=== PATIENT | female | born 1990 | race Caucasian/White ===

== ENCOUNTER 2022-02-28 05:37 | Inpatient (IN) ==
--- NOTE | 2022-02-22 15:18 | Anesthesiology Consultation ---
Date of Service February 22, 2022 Assessment & Plan (1) Encounter for pre-operative examination: Plan - COVID screening: Per esl instructional assistant on 02/22/2022: Travel screen negative, no known COVID-19 positive contacts or current COVID-19 related symptoms in past 2 weeks. To surgeon's discretion if preop COVID testing needed. Chart Review Chart Review: Acceptable Risk for Surgery and Patient NOT seen in Pre Admission Testing History Surgery Operation Date: 02/28/22 07:30 Proposed Procedures p Section in LD (Delivery of Baby through Abdominal Incision) - Priscila Valencia DO Height/Weight Height: 5 ft 4 in Weight: 75.75 kg Allergies Allergy/AdvReac Type Severity Reaction Status Date / Time gluten Allergy Diarrhea Verified 02/22/22 12:19 Medications Home Medications Medication Instructions Recorded Confirmed Last Taken nutritional supplement-fiber 1 dose PO UD 08/08/21 02/22/22 Unknown [Juice Plus] Past Medical History Medical History Digestive disorder chronic crohns colitis History of chicken pox as child History of Clostridioides difficile infection ~2013. no reoccurances History of COVID-19 01/2021 -> fever, loss of taste and smell, mild cough TMJ click improved per pt Ulcerative colitis Past Family History Family History Grandfather Diabetes, type I Heart disease [place] Cancer Grandmother Cancer Father Chronic hypertension Leaky heart valve ASD (atrial septal defect) Mother Family history of reaction to anesthesia WOKE UP DURING SURGERY Uncle Diabetes, type I Aunt Diabetes, type I Grandfather (Maternal) Family hx of colon cancer Grandmother (Paternal) Breast cancer Denies family history of Ovarian cancer Colorectal cancer Past Surgical History Surgical History H/O colonoscopy 12/2014 and 07/2015 for colitis History of adenoidectomy at age 10 History of section x1 History of surgical removal of pilonidal cyst 02/2013 excison of cyst by at [facility] History of tonsillectomy at age 10 Hx of wisdom tooth extraction 2005 Social History Smoking Status: Never smoker Do You Dip or Chew Tobacco: No Hx Alcohol Use: No alcohol intake frequency: holidays/special occasions only Hx Substance Use: No substance use type: does not use Lab Results Anesthesia Preop Results Results Anesthesia Widget: WBC 9.34 K/ul (4.8-10.8) 01/01/22 Hgb 10.9 g/dl (12.0-16.0) L 01/01/22 Hct 33.2 % (34.1-44.9) L 01/01/22 Plt 292 K/uL (130-400) 01/01/22 Na 135 mmol/L (136-145) L 01/01/22 K 3.8 mmol/L (3.5-5.1) 01/01/22 Cl 105 mmol/L (98-107) 01/01/22 CO2 25 mmol/L (21-32) 01/01/22 BUN 6 mg/dl (6-23) 01/01/22 Creat 0.74 mg/dl (0.6-1.2) 01/01/22 Glucose Level 83 mg/dl (70-99(Fasting)) 01/01/22 PT 9.8 Seconds (9.0-12.0) 01/01/22 PTT 25.7 Seconds (21.0-31.0) 01/01/22 INR 0.9 (0.9-1.1) 01/01/22 Urine Color Yellow 01/01/22 Urine Appearance Clear (Clear) 01/01/22 Urine pH 7.5 (4.5-7.5) 01/01/22 Urine Specific Arm[place]ust 1.003 (1.000-1.030) 01/01/22 Urine Protein Negative (Negative) 01/01/22 Urine Glucose (UA) Negative (Negative) 01/01/22 Urine Ketones Negative (Negative) 01/01/22 Urine Blood Negative (Negative) 01/01/22 Urine Nitrite Negative (Negative) 01/01/22 Urine Bilirubin Negative (Negative) 01/01/22 Urine Urobilinogen Negative (Negative) 01/01/22 Urine Leukocyte Esterase Negative (Negative) 01/01/22 Blood Type O Positive 01/01/22 Antibody Screen NEGATIVE 01/01/22
--- NOTE | 2022-02-27 18:01 | History & Physical Report ---
Date of Service February 27, 2022 Assessment & Plan (1) Previous delivery affecting , antepartum: Plan: Plan for repeat section. Reviewed consent in office with patient. Questions answered. History of Present Illness Chief Complaint: Repeat CS Primary Care Provider: RENEE PCP 31yo with EDC 03/02/22. Scheduled for planned repeat section. and Delivery Plans Previous C/S SCHEDULED FOR 02/28/[address] GORDON refused GBS test NEEDS COVID TEST ON 02/26/2022-ORDERED Patient's father with ASD echo~22-24 weeks *[facility] 11/01 @ 0930am - pt cancelled *Declines echo Fibroid in anterior TOM Formal scan ordered to clarify; measured at [facility] NOB not seen on anatomy us-akh Declines all vaginal exams at NOB No pap, Gc/Ct, cervix check or TVUS per patient. Transfer [place] [facility] [place] 11wk Rubella Non Immune *PPX MMR (if pt accepts) Allergies Allergy/AdvReac Type Severity Reaction Status Date / Time gluten Allergy Diarrhea Verified 02/27/22 10:33 Home Medications Medication Instructions Recorded Confirmed Type nutritional supplement-fiber 1 dose PO UD 08/08/21 02/27/22 History [Juice Plus] Patient History Medical History Digestive disorder chronic crohns colitis History of chicken pox as child History of Clostridioides difficile infection ~2013. no reoccurances History of COVID-19 01/2021 -> fever, loss of taste and smell, mild cough TMJ click improved per pt Ulcerative colitis Surgical History H/O colonoscopy 12/2014 and 07/2015 for colitis History of adenoidectomy at age 10 History of section x1 History of surgical removal of pilonidal cyst 02/2013 excison of cyst by at [facility] History of tonsillectomy at age 10 Hx of wisdom tooth extraction 2005 Family History Grandfather Diabetes, type I Heart disease [place] Cancer Grandmother Cancer Father Chronic hypertension Leaky heart valve ASD (atrial septal defect) Mother Family history of reaction to anesthesia WOKE UP DURING SURGERY Uncle Diabetes, type I Aunt Diabetes, type I Grandfather (Maternal) Family hx of colon cancer Grandmother (Paternal) Breast cancer Denies family history of Ovarian cancer Colorectal cancer Social History (Updated 08/08/21 @ 15:18 by Bere Burks) Smoking Status: Never smoker Second Hand Exposure: No; Hx Alcohol Use: No Hx Substance Use: No Preferred Language: Greek Communication Ability: Effective 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: No Beliefs That Will Affect Care: Cultural Cultural Beliefs: no vaccines/ trying to avoid antibiotics marital status: marital status details: Dani Torres (33) [phone] Current Living Situation: Spouse Current Living Situation Comment: lives with spouse, son, dog current occupational status: unemployed 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 No s/s chorio or abruption. Skin: no rashes, warm and dry Psychiatric: A+Ox3, euthymic affect Coding Level of Care Code None Diagnoses Previous delivery affecting , antepartum O34.219
[2022-02-28] MEDS ORDERED: ceFAZolin 2,000 MG in SYRINGE 0 ML IV SCH (06:00)
[2022-02-28] MEDS ORDERED: CITRIC ACID/SODIUM CITRATE 15 ML UDC PO SCH (06:00)
[2022-02-28] MEDS ORDERED: LACTATED RINGER'S 1,000 ML IV SCH (06:00)
[2022-02-28 06:25] LABS: Basophils # (auto) 0.07 K/uL (0-0.2); Basophils % (auto) 0.6 %; Eosinophils # (auto) 0.09 K/uL (0-0.50); Eosinophils % (auto) 0.7 %; Hematocrit (blood only) 32.3 % (34.1-44.9); Hemoglobin 10.7 g/dl (12.0-16.0); Immature Granulocytes % (auto) 0.8 %; Lymphocytes # (auto) 2.81 K/uL (1.2-3.4); Mean Corpuscular Hemoglobin 28.2 pg (25.0-34.0); Mean Corpuscular Hgb Conc 33.1 g/dL (32.0-36.0); Mean Corpuscular Volume 85.2 fL (80.0-100.0); Mean Platelet Volume 11.2 fL (9.4-12.3); Monocytes # (auto) 0.95 K/uL (0.24-0.82); Monocytes % (auto) 7.8 %; Neutrophils % (auto) 67.1 %; Platelet Count 263 K/uL (130-400); RDW Coefficient of Variation 15.5 % (11.5-14.5); RDW Standard Deviation 47.8 fL (36.4-46.3); Red Blood Count 3.79 M/uL (3.93-5.22); White Blood Count 12.22 K/ul (4.8-10.8)
[2022-02-28] MEDS ORDERED: PHENYLEPHRINE 100MCG/ML 5ML SYR ONE (06:48)
[2022-02-28] MEDS ORDERED: OXYTOCIN 10 UNITS/ML 10ML VIAL ONE (06:48)
[2022-02-28] MEDS ORDERED: ONDANSETRON INJ 2 MG/ML 2 ML VIAL ONE (06:48)
[2022-02-28] MEDS ORDERED: fentaNYL citrate 100 MCG/2 ML VIAL ONE (06:48)
[2022-02-28] MEDS ORDERED: MoRPHine SULFATE PF 1 MG/ML 10 ML AMP/VIAL ONE (06:48)
--- NOTE | 2022-02-28 07:34 | History & Physical Bridge Note ---
Date of Service February 28, 2022 History & Physical Bridge Note I have examined the patient, reviewed the History & Physical and in the interval since the performance of the History & Physical I have noted the following changes of clinical significance: no changes noted
[2022-02-28] MEDS ORDERED: ONDANSETRON INJ 2 MG/ML 2 ML VIAL IV PRN (07:57)
[2022-02-28] MEDS ORDERED: NALOXONE HCL 0.08 MG in SYRINGE 1.8 ML IV PRN (07:57)
[2022-02-28] MEDS ORDERED: NALOXONE HCL 1 MG in SODIUM CHLORIDE 0.9% 1000ML 1,000 ML IV PRN (07:57)
[2022-02-28] MEDS ORDERED: NALOXONE HCL 0.4 MG/1 ML VIAL/CARP IV PRN (07:57)
[2022-02-28] MEDS ORDERED: MoRPHine SULFATE 2 MG/ML CARP IV PRN (07:57)
[2022-02-28] MEDS ORDERED: diphenhydrAMINE 50 MG/ML VIAL IV PRN (07:57)
[2022-02-28] MEDS ORDERED: ePHEDrine sulfate 50 MG/ML AMP IV PRN (07:57)
[2022-02-28] MEDS ORDERED: MoRPHine SULFATE PF 1 MG/ML 10 ML AMP/VIAL INT SPINAL ONE (07:57)
[2022-02-28] MEDS ORDERED: NALBUPHINE HCL INJ 10 MG/ML AMP IV PRN (07:57)
[2022-02-28] MEDS ORDERED: LACTATED RINGER'S 500 ML IV PRN (07:57)
[2022-02-28] MEDS ORDERED: PROMETHAZINE HCL 6.25 MG in SODIUM CHLORIDE 0.9% 50 ML IV PRN (07:57)
[2022-02-28] MEDS ORDERED: SODIUM CHLORIDE 0.9% 1000ML 1,000 ML IV SCH (08:00)
[2022-02-28] MEDS ORDERED: NO NARCOTICS OR SEDATIVES SCH (08:00)
[2022-02-28] MEDS ORDERED: DC INTRASPINAL MORPHINE SCH (08:00)
--- NOTE | 2022-02-28 09:12 | Operative Report ---
PG Post Operative Report Pre & Post Diagnosis Operation Date: 02/28/22 07:30 Pre-Op Diagnosis: Term intrauterine History of section x1 Desires repeat section Post-Op Diagnosis: Same I identified the patient and participated in the time-out.: Yes Procedure Operation Date: 02/28/22 07:30 Actual Procedures Repeat low transverse Section in LD of a viable male - Priscila Valencia DO Surgeon Priscila Valencia DO Sole Rounder Dilip Barrios MD Estimated Blood Loss 600 Findings Consistent with Post-Op Diagnosis Viable male . Normal appearing uterus, tubes, ovaries. Specimens placenta, cord blood, cord gas Drains antonio clear yellow Anesthesia Type Spinal Complications none Disposition Accompanied Patient To Recovery: No Disposition: L&D Indications 31yo @ 39 09/15, h/o x 1, desire for repeat. Description of Procedure The patient was seen in her labor and delivery room, risks benefits and alternatives to surgery were reviewed. Informed consent obtained. Questions were answered. She was taken to the operating room, spinal anesthesia was administered. She was then prepared and draped in the usual sterile fashion in the supine position with a leftward tilt. Timeout was confirmed. A Pfannenstiel skin incision was made with a scalpel, removing the prior scar tissue, and carried through to the underlying layer of fascia. Fascia was nicked at midline, and this incision was extended bilaterally. The superior aspect of the fascial incision was grasped with Jose clamps x2, elevated off the underlying rectus abdominis muscles, and dissected sharply and bluntly. In similar fashion, the inferior aspect of the fascial incision was dissected. The rectus abdominis muscles were , and the peritoneum was entered bluntly digitally. This was extended bilaterally. The bladder flap was taken down carefully using Metzenbaum scissors. Using a new scalpel, a low transverse uterine incision was created. Clear amniotic fluid noted. The infant was delivered from a cephalic presentation. The head delivered, followed by shoulders and body. Spontaneous cry on the field. The cord was doubly clamped and cut, and the was handed off to the waiting [employer] team member. A segment was retained for cord gases. Cord blood was obtained. The placenta was delivered spontaneously intact. The uterus was exteriorized, and cleared of all clots and debris. The hysterotomy incision was reapproximated using 0 Vicryl in a running locked stitch. A second layer of the same suture was used to imbricate the incision. Posterior uterus was evaluated and normal. The uterus was returned to the abdomen, and gutters were cleared of clots and debris. A mymevr-[id number] suture of 2-0 Vicryl was used on the hysterotomy to obtain hemostasis. Excellent hemostasis was observed. The fascial incision was reapproximated using 0 Vicryl in a running stitch. The subcutaneous tissue was irrigated, and reapproximated - 3 layers of 2-0 plain gut were used to reapproximate the subcutaneous tissue to take tension off the skin closure. The first was an interrupted row, then 2 layers of running stitch. The skin was then reapproximated using 4-0 Vicryl in a running subcuticular stitch. Steri-Strips and a bandage were applied. The patient tolerated the procedure well, and will be taken to the recovery area in stable and good condition. Sponge, needle, instrument counts were correct x 2. I attest to the content of the Intraoperative Record and any orders documented therein. Any exceptions are noted below.
[2022-02-28] MEDS ORDERED: HYDROCORTISONE ACETATE 25 MG SUPP PR PRN (10:25)
[2022-02-28] MEDS ORDERED: MAGNESIUM HYDROXIDE SUSP 30 ML UDC PO PRN (10:25)
[2022-02-28] MEDS ORDERED: SENNA 8.6 MG TAB PO PRN (10:25)
[2022-02-28] MEDS ORDERED: BENZOCAINE 20% AER SPR 82.5 GM CAN EXT PRN (10:25)
[2022-02-28] MEDS ORDERED: DIPHTHERIA/TETANUS/PERTUSSIS 0.5 ML SYR/VIAL IM ONE (10:25)
[2022-02-28] MEDS: KETOROLAC 30 MG/ML VIAL IV PRN ×2 (10:48→23:53)
[2022-02-28] MEDS: OXYTOCIN 30 UNITS in LACTATED RINGER'S 1,000 ML IV SCH ×2 (11:02→19:29)
[2022-02-28] MEDS: SIMETHICONE 80 MG CHEW PO SCH ×3 (12:55→21:33)
--- NOTE | 2022-02-28 14:43 | Anesthesiology Progress Note ---
Date of Service February 28, 2022 Anesthesia Post Procedure Vital Signs Vital Signs: Temp Pulse Resp BP Pulse Ox 02/28/22 14:10 16 97 02/28/22 13:15 36.8 C 18 02/28/22 11:40 36.7 C 16 02/28/22 10:54 36.7 C 16 02/28/22 10:00 36.3 C L 16 02/28/22 09:30 36.9 C 16 02/28/22 14:06 99 02/28/22 14:06 86 02/28/22 14:01 97 02/28/22 14:01 93 H 02/28/22 13:56 98 02/28/22 13:56 89 02/28/22 13:51 98 02/28/22 13:51 88 02/28/22 13:46 97 02/28/22 13:46 85 02/28/22 13:41 100 02/28/22 13:41 91 H 02/28/22 13:36 100 02/28/22 13:36 87 02/28/22 13:31 92 H 100 02/28/22 13:26 87 100 02/28/22 13:21 86 100 02/28/22 13:16 95 H 100 02/28/22 13:11 86 100 02/28/22 13:06 83 100 02/28/22 13:01 91 H 100 02/28/22 12:56 88 100 02/28/22 12:51 89 99 02/28/22 12:46 86 100 02/28/22 12:41 84 99 02/28/22 12:36 88 99 02/28/22 12:31 83 99 02/28/22 12:27 87 134/70 02/28/22 12:26 86 100 02/28/22 12:01 82 119/58 L 02/28/22 11:19 86 116/63 02/28/22 11:10 85 110/58 L 02/28/22 11:05 93 H 99 02/28/22 11:00 90 115/64 97 02/28/22 10:55 84 100 02/28/22 10:50 83 100 02/28/22 10:49 80 116/69 02/28/22 10:45 89 100 02/28/22 10:41 92 H 91 02/28/22 10:40 90 100 02/28/22 10:39 85 114/71 02/28/22 10:35 87 100 02/28/22 10:30 85 114/73 100 02/28/22 10:25 86 100 02/28/22 10:20 99 02/28/22 10:20 88 02/28/22 10:20 94 H 114/78 02/28/22 10:15 99 02/28/22 10:15 89 02/28/22 10:15 82 91 02/28/22 10:10 99 02/28/22 10:10 92 H 02/28/22 10:10 84 108/68 02/28/22 10:05 83 100 02/28/22 10:00 86 100 02/28/22 09:59 85 114/67 02/28/22 09:55 86 100 02/28/22 09:50 84 100 02/28/22 09:49 87 114/63 02/28/22 09:45 84 100 02/28/22 09:43 85 116/64 02/28/22 09:41 92 02/28/22 09:41 84 02/28/22 09:40 85 100 02/28/22 09:41 82 160/113 H 02/28/22 09:35 86 100 02/28/22 09:30 93 H 96 02/28/22 09:29 90 108/71 02/28/22 09:25 80 100 02/28/22 09:20 100 02/28/22 09:20 84 02/28/22 09:20 77 108/61 02/28/22 09:15 85 100 02/28/22 09:16 84 89 L 02/28/22 09:10 82 100 02/28/22 09:06 79 113/59 L 02/28/22 09:05 77 100 02/28/22 07:05 16 02/28/22 07:05 37.0 C 16 02/28/22 05:52 88 122/68 02/28/22 05:43 16 Pain Intensity Lower Abdomen: Pain Intensity: 1 Transfer of Care Handoff Completed per policy Notes Mental Status: alert / awake / arousable and participated in evaluation Patient Amnestic to Procedure: No Nausea / Vomiting: adequately controlled Pain: adequately controlled Airway Patency, RR, SpO2: stable & adequate BP & HR: stable & adequate Hydration State: stable & adequate Neuraxial Anesthesia: was administered and sensory block is resolving Anesthetic Complications: no major complications apparent and Pt Satisfied with anesthetic care
[2022-02-28] MEDS: LACTATED RINGER'S 1,000 ML IV SCH (20:10)
[2022-02-28] MEDS: DOCUSATE SODIUM 100 MG CAP PO SCH (21:33)
[2022-03-01] MEDS ORDERED: diphenhydrAMINE Capsule 25 MG CAP PO PRN (02:00)
[2022-03-01] MEDS ORDERED: diphenhydrAMINE 50 MG/ML VIAL IV PRN (02:00)
[2022-03-01] MEDS ORDERED: PROMETHAZINE HCL 25 MG in SODIUM CHLORIDE 0.9% 50 ML IV PRN (02:00)
[2022-03-01] MEDS ORDERED: ONDANSETRON INJ 2 MG/ML 2 ML VIAL IV PRN (02:00)
[2022-03-01] MEDS ORDERED: IBUPROFEN 600 MG TAB PO PRN (02:00)
[2022-03-01] MEDS ORDERED: KETOROLAC 30 MG/ML VIAL IV PRN (02:00)
[2022-03-01] MEDS: LACTATED RINGER'S 1,000 ML IV SCH (04:43)
[2022-03-01] MEDS: oxyCODONE/ACETAMINOPHEN 5mg/325mg TAB PO PRN ×4 (05:45→20:06)
--- NOTE | 2022-03-01 05:47 | Obstetrical Progress Note ---
Date of Service <Uzma Sarmiento DO - Last Filed: 03/01/22 07:06> March 01, 2022 Assessment & Plan <Uzma Sarmiento DO - Last Filed: 03/01/22 07:06> (1) Status post section: Marcus has been d/c, do a trial of OOB and ambulation and then progress diet as tolerated <Priscila Valencia, DO - Last Filed: 03/01/22 07:59> (1) Status post section: Subjective <Uzma Sarmiento, DO - Last Filed: 03/01/22 07:06> Milagros is a 31 y/o female who is POD #1 following delivery at 39 5/7 weeks. She reports feeling well overall this morning. Moderate abdominal cramping pain well managed on analgesics. Voiding. Tolerating meals overnight and able to ambulate some. Is passing gas and no bowel movement. Has some persistent lochia with some improvement this morning. Currently breast feeding. Review of Systems Denies fever, chills, sweats Denies shortness of breath, difficulty breathing, chest pain, palpitations, chest pressure. Denies breast pain. Denies dysuria. Denies headache or changes in vision. Physical Exam <Uzma Sarmiento DO - Last Filed: 03/01/22 07:06> General: Alert, oriented. No acute distress. Cardiac: Regular rate and rhythm, no murmurs/rubs/gallops. Respiratory: Clear to auscultation bilaterally a/p, no wheezes/rales/rhonchi. No increased work of breathing. Symmetrical chest rise. No respiratory distress. Abdomen: Soft, nontender, nondistended. Bowel sounds present. Uterus: Uterine fundus firm, palpable at umbilicus. Surgical scar clean and healing well. Lower Extremities: No lower extremity edema or swelling. No deep calf pain. Aurelia's negative bilaterally. Results & Data ([facility]) <Uzma Sarmiento DO - Last Filed: 03/01/22 07:06> Vital Signs (Past 12 Hours) Vital Signs Temp Pulse Resp BP Pulse Ox O2 Del Method 03/01/22 03:45 83 18 99/67 L 98 03/01/22 01:05 37 C 78 18 99/59 L 95 Room Air 02/28/22 21:20 36.9 C 85 18 109/63 97 Room Air 03/01/22 04:00 18 97 03/01/22 03:00 18 97 03/01/22 02:00 18 97 03/01/22 01:00 18 95 03/01/22 00:00 18 97 02/28/22 23:00 16 95 02/28/22 22:00 18 97 02/28/22 21:00 16 96 02/28/22 20:00 18 95 02/28/22 19:00 18 95 02/28/22 18:00 16 97 <Priscila Valencia, - Last Filed: 03/01/22 07:59> Co-Signing Physician Notes Resident Physician Supervision Note: I interviewed and examined the patient. Discussed with Dr. Sarmiento and agree with findings and plan as documented in the note. Any exceptions or clarifications are listed here: POD#1 doing well. Continue routine postop care. Documented By: Priscila Valencia DO Resident Activity Tracking <Uzma Sarmiento, - Last Filed: 03/01/22 07:06> Resident Involvement: Resident Care Provided Care Provided: OB Delivery (Post )
[2022-03-01] MEDS: PRENATAL VITAMIN 1 TAB PO SCH (08:27)
[2022-03-01 08:45] LABS: Basophils # (auto) 0.02 K/uL (0-0.2); Basophils % (auto) 0.1 %; Eosinophils # (auto) 0.08 K/uL (0-0.50); Eosinophils % (auto) 0.5 %; Hematocrit (blood only) 32.2 % (34.1-44.9); Hemoglobin 10.7 g/dl (12.0-16.0); Immature Granulocytes # (auto) 0.11 K/uL (0.00-0.02); Immature Granulocytes % (auto) 0.7 %; Lymphocytes # (auto) 1.73 K/uL (1.2-3.4); Lymphocytes % (auto) 11.7 %; Mean Corpuscular Hemoglobin 27.9 pg (25.0-34.0); Mean Corpuscular Hgb Conc 33.2 g/dL (32.0-36.0); Mean Corpuscular Volume 83.9 fL (80.0-100.0); Mean Platelet Volume 11.1 fL (9.4-12.3); Monocytes # (auto) 1.04 K/uL (0.24-0.82); Neutrophils # (auto) 11.81 K/uL (1.4-6.5); Platelet Count 219 K/uL (130-400); RDW Coefficient of Variation 15.3 % (11.5-14.5); RDW Standard Deviation 46.1 fL (36.4-46.3); Red Blood Count 3.84 M/uL (3.93-5.22); White Blood Count 14.79 K/ul (4.8-10.8)
[2022-03-01] MEDS: SIMETHICONE 80 MG CHEW PO SCH ×4 (09:07→20:06)
[2022-03-01] MEDS: FERROUS SULFATE 325 MG TAB PO SCH (09:07)
[2022-03-01] MEDS: DOCUSATE SODIUM 100 MG CAP PO SCH ×2 (09:07→20:05)
[2022-03-01] MEDS ORDERED: bisacodyL 5 MG TABEC PO SCH (20:00)
[2022-03-02] MEDS: oxyCODONE/ACETAMINOPHEN 5mg/325mg TAB PO PRN ×2 (03:56→11:03)
--- NOTE | 2022-03-02 07:02 | Obstetrical Progress Note ---
Date of Service <Uzma S. DO Torsten - Last Filed: 03/02/22 07:54> March 02, 2022 Assessment & Plan <Uzma SarmientoDO - Last Filed: 03/02/22 07:54> (1) Status post section: Marcus has been d/c, continue OOB and ambulation <Rubens Cohen MD - Last Filed: 03/02/22 08:28> (1) Status post section: Subjective <Uzmamellissa SarmientoDO - Last Filed: 03/02/22 07:54> Milagros is a 31 y/o female who is POD #2 following delivery at 39 5/7 weeks. She reports feeling well overall this morning. Moderate abdominal cramping pain well managed on analgesics. Voiding. Tolerating meals overnight and able to ambulate some. Has some persistent lochia with some improvement this morning. Currently breast feeding. Review of Systems Denies fever, chills, sweats Denies shortness of breath, difficulty breathing, chest pain, palpitations, chest pressure. Denies breast pain. Denies dysuria. Denies headache or changes in vision. Physical Exam <Uzmamellissa SarmientoDO - Last Filed: 03/02/22 07:54> General: Alert, oriented. No acute distress. Cardiac: Regular rate and rhythm, no murmurs/rubs/gallops. Respiratory: Clear to auscultation bilaterally a/p, no wheezes/rales/rhonchi. No increased work of breathing. Symmetrical chest rise. No respiratory distress. Abdomen: Soft, nontender, nondistended. Bowel sounds present. Uterus: Uterine fundus firm, palpable at umbilicus. Surgical scar clean and healing well. Lower Extremities: No lower extremity edema or swelling. No deep calf pain. Aurelia's negative bilaterally. Results & Data ([facility]) <Uzma S. DO Torsten - Last Filed: 03/02/22 07:54> Vital Signs (Past 12 Hours) Vital Signs Temp Pulse Resp BP Pulse Ox O2 Del Method 03/01/22 22:52 36.8 C 80 18 106/59 L 96 Room Air <Rubens Cohen MD - Last Filed: 03/02/22 08:28> Co-Signing Physician Notes Patient seen with resident and agree with above findings and plan. Patient doing and requesting discharge today. Patient is stable for discharge. Resident Activity Tracking <Uzma Sarmiento, DO - Last Filed: 03/02/22 07:54> Resident Involvement: Resident Care Provided Care Provided: OB Delivery (Post )
[2022-03-02 07:03] LABS: Hematocrit (blood only) 31.7 % (34.1-44.9); Hemoglobin 10.3 g/dl (12.0-16.0)
[2022-03-02] MEDS ORDERED: bisacodyL 10 MG SUPP PR PRN (09:05)
[2022-03-02] MEDS: SIMETHICONE 80 MG CHEW PO SCH (11:03)
[2022-03-02] MEDS: FERROUS SULFATE 325 MG TAB PO SCH (11:04)
[2022-03-02] MEDS: PRENATAL VITAMIN 1 TAB PO SCH (11:04)
[2022-03-02] MEDS: DOCUSATE SODIUM 100 MG CAP PO SCH (11:04)
--- NOTE | 2022-03-07 01:30 | Discharge Summary ---
Date of Service March 07, 2022 Admission HPI Per Admitting Provider 31yo with EDC 03/02/22. Scheduled for planned repeat section. and Delivery Plans Previous C/S SCHEDULED FOR 02/28/[address] VALENCIA refused GBS test NEEDS COVID TEST ON 02/26/2022-ORDERED Patient's father with ASD echo~22-24 weeks *[facility] 11/01 @ 0930am - pt cancelled *Declines echo Fibroid in anterior TOM Formal scan ordered to clarify; measured at [facility] NO[facility] not seen on anatomy us-akh Declines all vaginal exams at NOB No pap, Gc/Ct, cervix check or TVUS per patient. [place] [facility] [place] Non Immune *PPX MMR (if pt accepts) Discharge Data Consultations 02/28/22 05:41 Consult Anesthesiology Stat Procedures Performed Operation Date: 02/28/22 07:30 Actual Procedures p Section in LD of a viable male infant at 0813 - Priscila Valencia, Hospital Course (1) Status post section: Repeat section, routine postop care. DC home POD2. Coding Level of Care Code None Diagnoses Status post section Z98.891
== END 2022-03-02 12:15 | disposition hospice, home (50) | DRG 788 ==
LOC: 4S1 05:37 → EDSTATUS 07:30 → 4E2 14:20 → UNDODISIN 03-02 09:45
DX: Z37.0 Single live birth; O34.211 Maternal care for low transverse scar from previous cesarean delivery; Z91.018 Allergy to other foods; Z3A.39 39 weeks gestation of pregnancy